=== PATIENT | female | born 1980 | race Caucasian/White ===

== ENCOUNTER 2018-02-21 15:39 | Emergency (ER) | payer MEDICAID ==
[2018-02-21 17:15] LABS: ABS Basophils 0 10^3/ul (0-0.2); ABS Eosinophils 0.2 10^3/ul (0-0.6); ABS Lymphocytes 2.3 10^3/ul (1.0-4.8); ABS Monocytes 0.6 10^3/ul (0-0.8); ABS Neutrophils 6.2 10^3/ul (1.5-7.7); ABS Nucleated RBC 0 10^3/ul; Eosinophil % 1.9 % (0-6); Hematocrit 38 % (35-47); Hemoglobin 12.9 g/dl (12.0-16.0); Lymphocyte % 24.5 % (25-47); Mean Corpuscular HGB Conc 34 g/dl (31-36); Mean Corpuscular Hemoglobin 30 pg (27-31); Mean Corpuscular Volume 89 fL (80-97); Mean Platelet Volume 8.5 um3 (7.4-10.4); Nucleated Red Blood Cells % 0; Platelet Count 230 10^3/ul (150-450); Red Blood Count 4.31 10^6/ul (4.00-5.40); Red Cell Distribution Width 14 % (10.5-15); White Blood Count 9.3 10^3/ul (3.5-10.8)
--- NOTE | 2018-02-21 17:20 | ED ---
GI/ HPI - HPI Summary HPI Summary: This is scribe Carola Zheng documenting for attending Danielle Redman MD This patient is a 37 year old F presenting to [facility] accompanied by her boyfriend with a chief complaint of vaginal bleeding for the past month, worsening the past few days. States she spoke to her OB in [place] who told her to come here. She states she has been changing a tampon three times an hour. Blood has been red, but today has been pink. Patient reports headache, dizziness fatigue, weakness, midline suprapubic and epigstric pain, that began before the bleeding. Denies CP, SOB, and odorous discharge. Patient has been receiving Depo-Provera shots; however, she ceased receiving them and her last shot was in October of 2017. A1. Pt states she lives in [place], but is visiting family in [place]. I, Dr. Redman ,personally performed the services described in this documentation as scribed in my presence and it is both accurate and complete - History of Current Complaint Chief Complaint: EDVaginalBleeding Time Seen by Provider: 02/21/18 16:56 Stated Complaint: ABNORMAL BLEEDING Hx Obtained From: Patient Onset/Duration: Started Weeks Ago, Worse Since - past few days Timing: Constant Severity: Moderate Current Severity: Severe Vaginal Bleeding Description: Bright Red Number of Pads per Hour: 3 - tampons Pain Intensity: 2 Location of Pain: Epigastric, Suprapubic Pain Characteristics: Dull Associated Signs and Symptoms: Positive: Dizziness, Weakness, Lightheadedness, Other: - headache Additional Signs & Symptoms: Positive: Vaginal Bleeding, - 3, Para - 2, First Day of Last Menstral Period - 01/21/18, Menses Irregular Aggravating Factor(s): Nothing Alleviating Factor(s): Nothing - Allergy/Home Medications Allergies/Adverse Reactions: Allergies Allergy/AdvReac Type Severity Reaction Status Date / Time aspirin Allergy Shortness Verified 02/21/18 15:52 of Breath [place] And Derivatives Allergy Nausea And Verified 02/21/18 15:52 Vomiting PMH/Surg Hx/FS Hx/Imm Hx Endocrine/Hematology History: Denies: Hx Anticoagulant Therapy Cardiovascular History: Reports: Hx Hypotension, Hx Myocardial Infarction - Surgical History Surgery Procedure, Year, and Place: x2. D&C, [place] Infectious Disease History: No Infectious Disease History: Denies: Traveled Outside the [place] in Last 30 Days - Family History Known Family History: Positive: Cardiac Disease, Diabetes - Social History Lives: Alone Alcohol Use: Rare Hx Substance Use: No Smoking Status (MU): Heavy Every Day Tobacco Smoker Review of Systems Positive: Fatigue, Other Cardiovascular: Negative Respiratory: Negative Positive: Abdominal Pain Positive: other - vaginal bleeding Skin: Negative Neurological: Other - dizziness Positive: Headache, Weakness Psychological: Normal All Other Systems Reviewed And Are Negative: Yes Physical Exam - Summary Physical Exam Summary: Appearance: Well-appearing, moderate pain distress, obese Skin: Warm, color reflects adequate perfusion, dry Head: Normal Head/Face inspection, atraumatic Eyes: Conjunctiva clear ENT: Normal inspection Neck: Supple, no nodes, no JVD Respiratory: Lungs clear, normal breath sounds, no respiratory distress Cardio: RRR, No murmur, pulses normal, brisk capillary refill Abdomen: Soft, nontender Bowel sounds: Present Pelvic Exam: Cervix long and closed, minimal amount of menstrual type blood in the vagina, adnexae are nontender, no masses, Exam is limited by obesity Musculoskeletal: Strength Intact/ROM intact, no calf tenderness, no edema. Psychological: Normal Neuro: Alert, muscle tone normal, no focal deficit BOSSMAN Hughes, was outpatient program coordinator for Pelvic Exam. Triage Information Reviewed: Yes Vital Signs On Initial Exam: Initial Vitals Temp Pulse Resp BP Pulse Ox 98.9 F 98 16 112/42 97 02/21/18 15:51 02/21/18 15:51 02/21/18 15:51 02/21/18 15:51 02/21/18 15:51 Vital Signs Reviewed: Yes Diagnostics - Vital Signs Vital Signs Temp Pulse Resp BP Pulse Ox 02/21/18 15:51 98.9 F 98 16 112/42 97 - Laboratory Result Diagrams: 02/21/18 17:09 02/21/18 17:09 Lab Statement: Any lab studies that have been ordered have been reviewed, and results considered in the medical decision making process. Re-Evaluation - Re-Evaluation First Re-Evaluation Time: 17:44 Change: Unchanged - Fully answered all of patient's questions. Pelvic cultures were taken. Pt requesting pain medication and US that was ordered. Advised that Dr. Lucas will assume care at 1900 GIGU Course/Dx - Course Course Of Treatment: 37 year old F with vaginal bleeding for the past month, worsening the past few days. She states she has been changing a tampon three times an hour. Patient reports headache, dizziness fatigue, weakness, midline suprapubic and epigstric pain, that began before the bleeding. Denies CP, SOB, and odorous discharge. Patient has been receiving Depo-Provera shots; however, she ceased receiving them and her last shot was in October of 2017. A1. Patient is given IV Fluids, Zofran, and Morphine. Bloodwork is unremarkable. ( Note B HCG is 0.93 and by lab definition less than 5 is not ). A Pelvic US is ordered. Patient will be signed out to Dr. Lucas, pending US. - Diagnoses Differential Diagnoses - Female: Appendicitis, Ovarian Cyst, Ovarian Torsion, , Urinary Tract Infection, Vaginitis, Other - dysfunctional uterine bleeding Provider Diagnoses: Vaginal bleeding, Abdominal pain Discharge - Sign-Out/Discharge Documenting (check all that apply): Sign-Out Patient Signing out patient TO: David Lucas - Pelvic US, 02/21/18 1900 - Discharge Plan Referrals: No Primary Care Phys,NOPCP [Primary Care Provider] -
[2018-02-21 17:24] LABS: INR 0.99 (0.77-1.02)
[2018-02-21 17:39] LABS: EGFR Non-African American 78.7 (>60)
[2018-02-21] MEDS ORDERED: Morphine VIAL* 10 MG/ML 1 ML VIAL IV ONE (18:11)
[2018-02-21] MEDS ORDERED: Ondansetron INJ* 2 MG/ML VIAL IV ONE (18:11)
[2018-02-21] MEDS: NS 0.9% 1000 ML* 2,000 ML IV ONE (19:23)
--- NOTE | 2018-02-21 21:24 | ED ---
Progress - Progress Note Progress Note: Patient is signed out from Dr. Redman awaiting Transvaginal US results. - Results/Orders Results/Orders: A Transvaginal US reveals, as per radiologist: Sonographically normal uterus and ovaries. Re-Evaluation - Re-Evaluation First Re-Evaluation Time: 17:44 Change: Unchanged - Fully answered all of patient's questions. Pelvic cultures were taken. Pt requesting pain medication and US that was ordered. Advised that Dr. Lucas will assume care at 1900 - Re-Evaluation Time: 17:44 Course/Dx - Course Course Of Treatment: 37 year old F with vaginal bleeding for the past month, worsening the past few days. She states she has been changing a tampon three times an hour. Patient reports headache, dizziness fatigue, weakness, midline suprapubic and epigstric pain, that began before the bleeding. Denies CP, SOB, and odorous discharge. Patient has been receiving Depo-Provera shots; however, she ceased receiving them and her last shot was in October of 2017. A1. Patient is given IV Fluids, Zofran, and Morphine. Bloodwork is unremarkable. ( Note B HCG is 0.93 and by lab definition less than 5 is not ). A Pelvic US is ordered. Patient will be signed out to Dr. Lucas, pending US. A Transvaginal US reveals: Sonographically normal uterus and ovaries. Patient will be discharged. Patient is agreeable with this plan. - Diagnoses Provider Diagnoses: Pelvic pain, Dysfunctional uterine bleeding Discharge - Sign-Out/Discharge Documenting (check all that apply): Patient Departure - discharge - Discharge Plan Condition: Stable Disposition: HOME Patient Education Materials: Dysfunctional Uterine Bleeding (ED), Pelvic Pain in Women (ED) Referrals: [facility] [Outside] - 1 Day Additional Instructions: Have definite follow up with your CHAIR CANER doctor in [place]. RETURN TO THE EMERGENCY DEPARTMENT FOR CHANGING OR WORSENING SYMPTOMS. FOLLOW UP WITH PCP IN 1-2 DAYS.
[2018-02-21] MEDS ORDERED: Ketorolac INJ* 30 MG/ML 1 ML VIAL IV PUSH ONE (21:35)
[2018-02-21 22:11] VITALS: BP 112/72
--- NOTE | 2018-02-22 07:17 | RAD ---
INDICATION: Vaginal bleeding, suprapubic pain. COMPARISON: There are no prior studies available for comparison. TECHNIQUE: Multiple real-time transabdominal and transvaginal images of the pelvis were obtained. FINDINGS: The uterus is upper limits of normal in size and normal in shape. The uterus measured 10.6 x 4.9 x 4.9 cm. The endometrial echo measured 1.2 cm in thickness. The right ovary measured 1.8 x 1.6 x 3.1 cm. The left ovary measured 2.0 x 2.5 x 2.0 cm. There are several bilateral subcentimeter follicular cysts present. No free intraperitoneal fluid is seen. IMPRESSION: NEGATIVE EXAM.
--- NOTE | 2018-02-24 17:00 | PN ---
Progress Note - Progress Note Date of Service: 02/21/18 Note: Pt. seen in ER 02/21 for abd. pain. Pelvic exam and cultures obtained at that time. Culture positive for gardnerella. Attempted to call pt. today and phone number is not available. Will send letter to return call.
== END 2018-02-21 22:11 | disposition home or self-care (01) ==
LOC: ED 15:39
DX: N93.8 Other specified abnormal uterine and vaginal bleeding (principal); R10.2 Pelvic and perineal pain; F17.200 Nicotine dependence, unspecified, uncomplicated; Z88.6 Allergy status to analgesic agent
CPT/HCPCS: 36415; 76830; 76856; 80053; 84702; 85025; 85610; 85730; 86592; 86850; 86900; 86901; 87480; 87491; 87510; 87591; 87661; 96361; 96374; 96375; 99283; J1885; J2270; J2405

== ENCOUNTER 2018-02-28 08:49 | Emergency (ER) | payer MEDICAID ==
[2018-02-28] MEDS ORDERED: Ondansetron INJ* 2 MG/ML VIAL IV ONE (09:10)
[2018-02-28] MEDS ORDERED: Morphine INJ* 2 MG/ML 1 ML SYRINGE (TWO MG - NEW SYRINGE VERSION) IV ONE (09:17)
--- NOTE | 2018-02-28 09:19 | ED ---
Abdominal Pain/Female - HPI Summary HPI Summary: Patient is a 37-year-old female who presents emergency department for ongoing diffuse abdominal pain. Patient was seen in the ER 02/21/18 for pelvic pain and vaginal bleeding. blood work and ultrasound done at that time. She also had a pelvic exam with cultures. Vaginal culture came back positive for Gardnerella. 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 She describes localizes pain to epigastric region and lower abd. She does not hx of acid reflux. History is limited by patient due to lack of cooperation. Questions are answered with the help of patient's significant other who is present. Suspect symptoms of nausea and vomiting. She is no other significant past medical history. Patient states she has been having irregular vaginal bleeding for years. Patient states she is currently visiting the area for the summer and resides in [place]. Symptoms are moderate in severity. No current modifying factors. - History of Current Complaint Chief Complaint: EDNauseaVomitDiarrh Stated Complaint: ABD PAIN Time Seen by Provider: 02/28/18 09:05 Hx Obtained From: Patient, Family/Spinner Frame Pain Intensity: 11 Allergies/Adverse Reactions: Allergies Allergy/AdvReac Type Severity Reaction Status Date / Time aspirin Allergy Shortness Verified 02/21/18 15:52 of Breath [place] And Derivatives Allergy Nausea And Verified 02/21/18 15:52 Vomiting PMH/Surg Hx/FS Hx/Imm Hx Previously Healthy: Yes Endocrine/Hematology History: Denies: Hx Anticoagulant Therapy Cardiovascular History: Reports: Hx Hypotension, Hx Myocardial Infarction - Surgical History Surgery Procedure, Year, and Place: x2. D&C, [place] Infectious Disease History: No Infectious Disease History: Denies: Traveled Outside the US in Last 30 Days - Family History Known Family History: Positive: Cardiac Disease, Diabetes - Social History Occupation: Unemployed Lives: With Family Alcohol Use: Rare Hx Substance Use: No Substance Use Type: Reports: None Smoking Status (MU): Heavy Every Day Tobacco Smoker Review of Systems Constitutional: Negative Eyes: Negative ENT: Negative Cardiovascular: Negative Respiratory: Negative Positive: Abdominal Pain, Vomiting, Nausea Genitourinary: Negative Musculoskeletal: Negative Neurological: Negative All Other Systems Reviewed And Are Negative: Yes Physical Exam Triage Information Reviewed: Yes Vital Signs On Initial Exam: Initial Vitals Temp Pulse Resp BP Pulse Ox 98.2 F 77 12 106/63 99 02/28/18 09:02 02/28/18 09:02 02/28/18 09:02 02/28/18 09:02 02/28/18 09:02 Vital Signs Reviewed: Yes Appearance: Positive: Pain Distress - Pt. lying on bed with legs pulled up. Appears uncomfortable but nontoxic. S.O. present. Skin: Positive: Warm, Dry Head/Face: Positive: Normal Head/Face Inspection Eyes: Positive: Normal Neck: Positive: Supple Respiratory/Lung Sounds: Positive: Clear to Auscultation, Breath Sounds Present Cardiovascular: Positive: Normal, RRR Abdomen Description: Positive: Other: - Morbidly obese. Abd. is soft with diffuse tenderness on palpation. No rebound tenderness or guarding. No rigidity. Neurological: Positive: Normal, CN Intact II-III Psychiatric: Positive: Affect/Mood Appropriate Diagnostics - Vital Signs Vital Signs Temp Pulse Resp BP Pulse Ox 02/28/18 09:02 98.2 F 77 12 106/63 99 - Laboratory Result Diagrams: 02/28/18 09:36 02/28/18 09:36 Lab Statement: Any lab studies that have been ordered have been reviewed, and results considered in the medical decision making process. Abdominal Pain Fem Course/Dx - Course Course Of Treatment: Pt. presenting for diffuse abd. pain. She is afebrile with stable VS. Pt. has pain to epigastric and lower abd. Will recheck labs and obtain CT scan for further evaluation of worsening abd. pain. Labs are unremarkable. CT scan shows left ovarian cyst but is otherwise unremarkable, reading per radiology. U/A shows RBC but negative for infection. On re-exam pt. is resting comfortably. Results were discussed. Advised to call her EDUCATIONAL DIRECTOR tomorrow for a close f.u apt. Advised to start clindamycin topical that was rx the other day for her BV. Will also start on pepcid for suspected gerd. Can take tylenol or motrin for pain as directed. To return to ER if sxs change or worsen. Pt. understands and agrees with plan. - Diagnoses Differential Diagnosis: Positive: Appendicitis, Constipation, Ectopic , Ovarian Cyst, Pelvic Inflammatory Disease, , Renal Colic, Urinary Tract Infection Provider Diagnoses: Bacterial vaginal infection, GERD (gastroesophageal reflux disease) Discharge - Sign-Out/Discharge Documenting (check all that apply): Patient Departure - Discharge Plan Condition: Good Disposition: HOME Prescriptions: Famotidine [Pepcid] 20 mg PO DAILY #14 tablet Patient Education Materials: Bacterial Vaginosis (ED), Gastritis (ED) Referrals: [facility] [Outside] No Primary Care Phys,NOPCP [Primary Care Provider] - Additional Instructions: Call the [facility] tomorrow to schedule an appointment cardiopulmonary supervisor prescriptions from your pharmacy after discharged and start taking them today as directed Call your EDUCATIONAL DIRECTOR tomorrow to schedule a close follow up appointment Tylenol for pain as directed Return to ER if symptoms change or worsen - Billing Disposition and Condition Condition: GOOD Disposition: Home
[2018-02-28] MEDS ORDERED: NS 0.9% 1000 ML* 1,000 ML IV ONE (09:38)
[2018-02-28 09:46] LABS: ABS Basophils 0 10^3/ul (0-0.2); ABS Eosinophils 0.1 10^3/ul (0-0.6); ABS Lymphocytes 1.8 10^3/ul (1.0-4.8); ABS Monocytes 0.7 10^3/ul (0-0.8); ABS Neutrophils 6.9 10^3/ul (1.5-7.7); ABS Nucleated RBC 0 10^3/ul; Eosinophil % 1.2 % (0-6); Hematocrit 37 % (35-47); Hemoglobin 12.7 g/dl (12.0-16.0); Lymphocyte % 19.1 % (25-47); Mean Corpuscular HGB Conc 34 g/dl (31-36); Mean Corpuscular Hemoglobin 30 pg (27-31); Mean Corpuscular Volume 88 fL (80-97); Mean Platelet Volume 8.7 um3 (7.4-10.4); Nucleated Red Blood Cells % 0; Platelet Count 235 10^3/ul (150-450); Red Blood Count 4.21 10^6/ul (4.00-5.40); Red Cell Distribution Width 14 % (10.5-15); White Blood Count 9.5 10^3/ul (3.5-10.8)
[2018-02-28 10:04] LABS: EGFR Non-African American 83.5 (>60)
[2018-02-28] MEDS ORDERED: Ketorolac INJ* 30 MG/ML 1 ML VIAL IV PUSH ONE (10:33)
[2018-02-28] MEDS ORDERED: Iohexol 300* (CONTRAST) 10 ML SDV IV ONE (12:34)
[2018-02-28 13:05] LABS: Urine Appearance Cloudy; Urine Blood 2+ (Negative); Urine Color Yellow; Urine Ketones Negative (Negative); Urine Protein Negative (Negative); Urine Red Blood Cell 3+(>10/hpf) (Absent); Urine Urobilinogen Negative (Negative); Urine White Blood Cell Trace(0-5/hpf) (Absent)
--- NOTE | 2018-02-28 13:12 | RAD ---
CLINICAL HISTORY: diffuse abd. pain COMPARISON: None TECHNIQUE: Multiple contiguous axial CT scans were obtained of the abdomen and pelvis after the administration of intravenous contrast. Coronal and sagittal multiplanar reformations are submitted for review. Oral contrast was administered. Delayed images were obtained through the abdomen. FINDINGS: LUNG BASES: The lung bases are clear. LIVER: The liver is normal in shape, size, contour, and attenuation. BILE DUCTS: There is no intrahepatic or extrahepatic biliary dilatation. GALLBLADDER: The gallbladder is normal, without pericholecystic inflammatory change. PANCREAS: The pancreas is normal, without mass or ductal dilatation. SPLEEN: Normal in size and appearance. UPPER GI TRACT: Evaluation of the gastrointestinal tract is limited by incomplete gastric distention. The upper GI tract is unremarkable. SMALL BOWEL AND MESENTERY: The small bowel is normal in contour, course, and caliber. There is no obstruction or dilatation. COLON: The colon is normal in contour, course, caliber. There is no pericolonic inflammatory change. There is a tubular, vermiform, hollow viscus that is blind ending, and originates from the cecum, consistent with a normal appendix. There is no periappendiceal inflammatory change. This is best seen on axial images 63 and 64. ADRENALS: Normal bilaterally. KIDNEYS: The kidneys are normal in shape, size, contour, and axis. There is no hydronephrosis or nephrolithiasis. BLADDER: The bladder is incompletely distended but is grossly normal. PELVIC ORGANS: There is a fat-containing lesion of left ovary consistent with a dermoid cyst. The uterus and adnexa are otherwise grossly normal for technique. AORTA: The aorta is normal. IVC: Unremarkable LYMPH NODES: There is no lymphadenopathy by size criteria. ABDOMINAL WALL: There is no evidence for abdominal wall hernia. BONES AND SOFT TISSUES: Unremarkable OTHER: None IMPRESSION: NO ACUTE CT PATHOLOGY OF THE VISUALIZED ABDOMEN OR PELVIS.
[2018-02-28] MEDS ORDERED: Famotidine TAB* 20 MG PO ONE (13:19)
[2018-02-28] MEDS ORDERED: metroNIDAZOLE TAB* 250 MG PO ONE (13:19)
[2018-02-28 13:42] VITALS: BP 119/76
== END 2018-02-28 13:43 | disposition home or self-care (01) ==
LOC: ED 08:49
DX: N76.0 Acute vaginitis (principal); K21.9 Gastro-esophageal reflux disease without esophagitis; Z88.6 Allergy status to analgesic agent; F17.200 Nicotine dependence, unspecified, uncomplicated
CPT/HCPCS: 36415; 74177; 80053; 81003; 81015; 83605; 83690; 84702; 85025; 86140; 87086; 93005; 96361; 96374; 96375; 99282; A9270-GY; J1885; J2270; J2405; Q9967

== ENCOUNTER 2019-06-10 02:17 | Emergency (ER) | payer MEDICAID ==
[2019-06-10] MEDS ORDERED: Ondansetron INJ* 2 MG/ML VIAL IV ONE (02:46)
[2019-06-10] MEDS ORDERED: Pantoprazole IV* 40 MG IV ONE (02:46)
[2019-06-10] MEDS ORDERED: Ketorolac INJ* 30 MG/ML 1 ML VIAL IV PUSH ONE (02:46)
[2019-06-10] MEDS ORDERED: NS 0.9% 1000 ML** 1,000 ML IV ONE (02:46)
--- NOTE | 2019-06-10 02:56 | ED ---
Abdominal Pain/Female - HPI Summary HPI Summary: Patient is a 38 y/o F w/ Hx of hemorrhoids who presents to [facility] with complaints of abdominal pain, diarrhea, and rectal bleeding. Sx have been present for the past few days. She states that she has had diarrhea intermittently and reports bright red blood in her stool. She states that she had an episode of emesis one day ago. Dysuria and fever are denied. Patient has been able to eat food. 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 No other PMHx, no daily medications noted. Allergy to ASA is noted, patient claims that her throat swells with this medication. She endorses tobacco usage and rare alcohol usage but denies substance usage. PSHx of D and C and section are noted. Patient states that she missed her most recent period due to stress, patient had menstrual cycle in April. On triage, pain is rated 10/10, nothing is noted to aggravate/alleviate Sx. Home medications and allergies are reviewed. - History of Current Complaint Chief Complaint: EDAbdPain Stated Complaint: RECTAL BLEEDING PER PT Time Seen by Provider: 06/10/19 02:45 Hx Obtained From: Patient Onset/Duration: Lasting Days, Still Present Timing: Days Severity Currently: Severe Pain Intensity: 10 Pain Scale Used: 0-10 Numeric Aggravating Factor(s): Nothing Alleviating Factor(s): Nothing Associated Signs and Symptoms: Positive: Blood in Stool, Vomiting, Diarrhea. Negative: Fever, Urinary Symptoms Allergies/Adverse Reactions: Allergies Allergy/AdvReac Type Severity Reaction Status Date / Time aspirin Allergy Shortness Verified 06/10/19 02:28 of Breath [place] And Derivatives Allergy Nausea And Verified 06/10/19 02:28 Vomiting Home Medications: Home Medications NK [No Home Medications Reported] 06/10/19 [History Confirmed 06/10/19] PMH/Surg Hx/FS Hx/Imm Hx Endocrine/Hematology History: Denies: Hx Anticoagulant Therapy, Hx Diabetes Cardiovascular History: Reports: Hx Hypotension, Hx Myocardial Infarction Denies: Hx Hypertension Sensory History: Denies: Hx Legally Blind, Hx Deafness Opthamlomology History: Denies: Hx Legally Blind EENT History: Denies: Hx Deafness - Surgical History Surgery Procedure, Year, and Place: x2. D&C, [place] Infectious Disease History: No Infectious Disease History: Denies: Traveled Outside the US in Last 30 Days - Family History Known Family History: Positive: Cardiac Disease, Diabetes - Social History Alcohol Use: Rare Hx Substance Use: No Substance Use Type: Reports: None Smoking Status (MU): Heavy Every Day Tobacco Smoker Review of Systems Negative: Fever Gastrointestinal: Other - positive - rectal bleeding Positive: Abdominal Pain, Vomiting, Diarrhea Negative: dysuria All Other Systems Reviewed And Are Negative: Yes Physical Exam - Summary Physical Exam Summary: General: Well-developed, Obese female. Appears in moderate discomfort HEENT: Normocephalic, Atraumatic. Eyes: Conjuctiva normal, PERRL. Ears: TMs within normal limits. Nares: (-) discharge, (-) erythema. Oropharynx: Clear, mucous membranes moist, (-) exudates. Neck: Soft, FROM, (-) lymphadenopathy, (-) thyromegaly, (-) JVD. Cardiovascular: Normal sinus rhythm, (-) murmur. Lungs: Clear to auscultation bilaterally (-) wheezes, (-) rales, (-) rhonchi. Abdomen: Soft, diffuse lower abdominal pain, non-distended, (-) organomegaly, normal bowel sounds. Rectal: Patient has large hemorrhoids that are up to 3 cm. They are pink and mildly tender with no evidence of thrombosis. Back: (-) CVA tenderness Extremities: No edema. Skin: Warm, dry, (-) rash. Neuro: Alert and oriented x3, no focal deficits. Psychiatric: Mood normal, affect normal. Triage Information Reviewed: Yes Vital Signs On Initial Exam: Initial Vitals Temp Pulse Resp BP Pulse Ox 97.8 F 88 18 134/100 98 06/10/19 02:28 06/10/19 02:28 06/10/19 02:28 06/10/19 02:28 06/10/19 02:28 Vital Signs Reviewed: Yes Procedures - Sedation Patient Received Moderate/Deep Sedation with Procedure: No Diagnostics - Vital Signs Vital Signs Temp Pulse Resp BP Pulse Ox 06/10/19 02:28 97.8 F 88 18 134/100 98 - Laboratory Result Diagrams: 06/10/19 03:04 06/10/19 03:04 Lab Statement: Any lab studies that have been ordered have been reviewed, and results considered in the medical decision making process. Abdominal Pain Fem Course/Dx - Course Course Of Treatment: During ED course, patient received fluids, protonix 40 mg IV, Zofran 4 mg IV, and toradol 15 mg IV. - Diagnoses Provider Diagnoses: Hemorrhoids, Abdominal pain, Diarrhea Discharge ED - Sign-Out/Discharge Documenting (check all that apply): Patient Departure - discharge - Discharge Plan Condition: Stable Disposition: HOME Patient Education Materials: Hemorrhoids (ED), Acute Diarrhea (ED), Abdominal Pain (ED) Referrals: [facility] [Outside] - 3 Days Shahid Madsen MD [Medical Doctor] - 3 Days Additional Instructions: DRINK CLEAR FLUIDS AND USE PREPARATION H, ANUSOLE HC, SITZ BATHS. PLEASE RETURN TO ED FOR ANY NEW OR WORSENING SYMPTOMS. PLEASE FOLLOW UP WITH YOUR PRIMARY CARE PHYSICIAN AND DR. MADSEN WITHIN THREE DAYS. - Billing Disposition and Condition Condition: STABLE Disposition: Home - Attestation Statements Document Initiated by Scribe: Yes Documenting Scribe: LANE GALAVIZ Provider For Whom Scribe is Documenting (Include Credential): MAKEDA HIDALGO MD Scribe Attestation: LANE Levine, scribed for MAKEDA HIDALGO MD on 06/13/19 at 0249. Scribe Documentation Reviewed: Yes Provider Attestation: The documentation as recorded by the LANE palmer accurately reflects the service I personally performed and the decisions made by , MAKEDA HIDALGO MD Status of Scribe Document: Viewed
[2019-06-10 03:13] LABS: ABS Eosinophils 0.1 10^3/ul (0-0.6); ABS Lymphocytes 2.5 10^3/ul (1.0-4.8); ABS Monocytes 0.8 10^3/ul (0-0.8); ABS Neutrophils 6.7 10^3/ul (1.5-7.7); Eosinophil % 1.3 %; Hematocrit 39 % (35-47); Hemoglobin 13.2 g/dL (12.0-16.0); Lymphocyte % 24.3 %; Mean Corpuscular HGB Conc 34 g/dL (31-36); Mean Corpuscular Hemoglobin 31 pg (27-31); Mean Corpuscular Volume 89 fL (80-97); Mean Platelet Volume 8.7 fL (7.4-10.4); Platelet Count 230 10^3/uL (150-450); Red Blood Count 4.32 10^6 /uL (3.70-4.87); Red Cell Distribution Width 14 % (10-15); White Blood Count 10.2 10^3/uL (3.5-10.8)
[2019-06-10 03:19] LABS: INR 1.06 (0.82-1.09)
[2019-06-10 03:31] LABS: Albumin 4.1 g/dL (3.2-5.2); Albumin/Globulin Ratio 1.3 (1-3); C Reactive Protein 14.15 mg/L (<8.01); Calcium 9.4 mg/dL (8.6-10.3); EGFR Non-African American 84.3 (>60); Globulin 3.1 g/dL (2-4); Potassium 3.8 mmol/L (3.5-5.0); Total Bilirubin 0.2 mg/dL (0.2-1.0); Total Protein 7.2 g/dL (6.4-8.9)
[2019-06-10 04:14] LABS: Urine Appearance Cloudy; Urine Bilirubin Negative (Negative); Urine Blood 1+ (Negative); Urine Color Yellow; Urine Glucose Negative (Negative); Urine Ketones Negative (Negative); Urine Nitrite Negative (Negative); Urine Protein Negative (Negative); Urine Urobilinogen Negative (Negative)
[2019-06-10 04:18] LABS: Urine Bacteria Absent (Absent); Urine Red Blood Cell 1+(3-5/hpf) (Absent); Urine Squamous Epithelial Cell Present (Absent); Urine White Blood Cell Absent (Absent)
[2019-06-10 05:59] VITALS: BP 135/82
== END 2019-06-10 05:45 | disposition home or self-care (01) ==
LOC: ED 02:17
DX: K64.9 Unspecified hemorrhoids (principal); R10.9 Unspecified abdominal pain; R19.7 Diarrhea, unspecified; I25.2 Old myocardial infarction; F17.200 Nicotine dependence, unspecified, uncomplicated; Z88.8 Allergy status to other drugs, medicaments and biological substances
CPT/HCPCS: 36415; 80053; 81003; 81015; 83605; 83690; 85025; 85610; 86140; 96361; 96374; 96375; 99284; J1885; J2405

== ENCOUNTER 2019-09-27 05:09 | Emergency (ER) | payer MEDICAID ==
[2019-09-27 05:14] VITALS: BP 125/75
[2019-09-27] MEDS ORDERED: Amoxicillin PO (*) 875 MG TAB PO ONE (05:47)
[2019-09-27] MEDS ORDERED: Ketorolac INJ* 30 MG/ML 1 ML VIAL IM ONE (05:47)
--- NOTE | 2019-09-27 05:47 | ED ---
Throat Pain/Nasal Congestion - HPI Summary HPI Summary: 39 year old female presents with sore throat and ear ache for the past couple days. She admits to some nausea vomiting. she is not currently nauseous. Has had an ear ache since yesterday. It is very severe and in her right ear. She does have a history of ear infections. No history of strep. She states that her daughter was sick with a viral illness. No medical conditions. she denies any chest pain or SOB. Denies any sinus congestion. No postnasal drip. No chest pain shortness breath. Admits to occasional cough. No vomiting. - History of Current Complaint Chief Complaint: EDThroatPain Time Seen by Provider: 09/27/19 05:34 - Allergies/Home Medications Allergies/Adverse Reactions: Allergies Allergy/AdvReac Type Severity Reaction Status Date / Time Nathalie And Derivatives Allergy Hives/Diff. Verified 09/27/19 05:13 Breathing/I tching Home Medications: Home Medications Amoxicillin PO (*) [Amoxicillin 875 MG (*)] 875 mg PO BID #13 tab 09/27/19 [Rx] Aspirin/Acetaminophen/Caffeine [Excedrin Extra Strength Caplet] 1 each PO Q6H PRN 09/27/19 [History Confirmed 09/27/19] PMH/Surg Hx/FS Hx/Imm Hx Endocrine/Hematology History: Denies: Hx Anticoagulant Therapy Respiratory History: Denies: Hx Asthma Infectious Disease History: No Infectious Disease History: Denies: Traveled Outside the [place] in Last 30 Days - Family History Known Family History: Positive: Non-Contributory - Social History Alcohol Use: Rare Substance Use Type: Reports: None Smoking Status (MU): Light Every Day Tobacco Smoker Review of Systems Negative: Fever Positive: Sore Throat, Ear Ache. Negative: Nasal Discharge Negative: Chest Pain Negative: Shortness Of Breath All Other Systems Reviewed And Are Negative: Yes Physical Exam Triage Information Reviewed: Yes Vital Signs On Initial Exam: Initial Vitals Temp Pulse Resp BP Pulse Ox 97.6 F 75 16 125/75 97 09/27/19 05:10 09/27/19 05:10 09/27/19 05:10 09/27/19 05:10 09/27/19 05:10 Vital Signs Reviewed: Yes Appearance: Positive: Well-Appearing Skin: Positive: Warm, Dry Head/Face: Positive: Normal Head/Face Inspection Eyes: Positive: EOMI, ADRIANNA, Conjunctiva Clear ENT: Positive: Pharyngeal erythema, TM red - mild right ear, Uvula midline, Other - soft palate symmetric. Negative: Tonsillar swelling, Tonsillar exudate , Trismus, Muffled voice Respiratory/Lung Sounds: Positive: Clear to Auscultation, Breath Sounds Present Cardiovascular: Positive: Normal, RRR Abdomen Description: Positive: Nontender, Soft Bowel Sounds: Positive: Present Musculoskeletal: Positive: Normal Neurological: Positive: Normal Psychiatric: Positive: Normal Procedures - Sedation Patient Received Moderate/Deep Sedation with Procedure: No Diagnostics - Vital Signs Vital Signs Temp Pulse Resp BP Pulse Ox 09/27/19 05:10 97.6 F 75 16 125/75 97 - Laboratory Lab Statement: Any lab studies that have been ordered have been reviewed, and results considered in the medical decision making process. EENT Course/Dx - Course Course Of Treatment: 39 year old female presents with Sore throat and ear ache for the past couple days. She admits to some nausea vomiting. she is not currently nauseous. Has had an ear ache since yesterday. It is very severe and in her right ear. She does have a history of ear infections. No history of strep. She states that her daughter was sick with a viral illness. No medical conditions. she denies any chest pain or SOB. Denies any sinus congestion. No postnasal drip. No chest pain shortness breath. Admits to occasional cough. No vomiting. On exam pharynx erythematous. Uvula midline. Soft palate symmetric. right ear mildly erythematous. We'll treat with ear infection with amoxicillin. Told follow up with primary. Patient understands agrees with plan. - Differential Diagnoses Differential Diagnoses: Otitis Externa, Otitis Media, Tonsilitis, URI/Bronchitis - Diagnoses Provider Diagnoses: Ear infection Discharge ED - Sign-Out/Discharge Documenting (check all that apply): Patient Departure - Discharge Plan Condition: Good Disposition: HOME Prescriptions: Amoxicillin PO (*) [Amoxicillin 875 MG (*)] 875 mg PO BID #13 tab Patient Education Materials: Ear Infection (ED) Referrals: No Primary Care Phys,NOPCP [Primary Care Provider] - Additional Instructions: Take antibiotic twice a day for 7 days Take Tylenol or ibuprofen for pain every 6 hours Follow up with primary within 5 days Return to ED if develop any new or worsening symptoms - Billing Disposition and Condition Condition: GOOD Disposition: Home
== END 2019-09-27 06:07 | disposition home or self-care (01) ==
LOC: MERGE 05:09 → ED 05:09
DX: H66.90 Otitis media, unspecified, unspecified ear (principal); J02.9 Acute pharyngitis, unspecified; F17.210 Nicotine dependence, cigarettes, uncomplicated; H92.09 Otalgia, unspecified ear
CPT/HCPCS: 96372; 99282; J1885

== ENCOUNTER 2019-10-08 17:03 | Emergency (ER) | payer MEDICAID ==
--- NOTE | 2019-10-08 17:09 | UC ---
Throat Pain/Nasal Pillo HPI - HPI Summary HPI Summary: 39-year-old female presenting with sore throat and "swollen tonsils" 2-3 days. Patient states feels like her "throat is closing." Patient states that this feeling has been going on for over a year now. States she has difficulty swallowing because it hurts so badly. Denies being unable to swallow food or drink, just states that it is very painful. Denies difficulty breathing. Swallowing her secretions without issue. Denies nasal congestion. Denies cough. Patient states the pain from her throat is radiating into her ears bilaterally. Denies fever and chills. Does note that she went to the ER 1 week ago and was given a 1 week course of amoxicillin for left otitis media. Patient states her last dose of amoxicillin will be tonight. States throat sprays are not alleviating pain. - History of Current Complaint Stated Complaint: SORE THROAT Hx Obtained From: Patient - Allergies/Home Medications Allergies/Adverse Reactions: Allergies Allergy/AdvReac Type Severity Reaction Status Date / Time aspirin Allergy Shortness Verified 10/08/19 17:14 of Breath Hana And Derivatives Allergy Nausea And Verified 10/08/19 17:14 Vomiting Home Medications: Home Medications Aspirin/Acetaminophen/Caffeine [Excedrin Extra Strength Caplet] 1 each PO Q6H PRN 09/27/19 [History Confirmed 10/08/19] Phenylephrine/Dm/Acetaminop/GG [Vicks Dayquil Severe Cold-Flu] 1 each PO Q6H [History Confirmed 10/08/19] PMH/Surg Hx/FS Hx/Imm Hx Other History Of: Negative For: Anticoagulant Therapy - Surgical History Surgical History: Yes Surgery Procedure, Year, and Place: x2. D&C, [place] - Family History Known Family History: Positive: Cardiac Disease, Diabetes, Non-Contributory - Social History Alcohol Use: Rare Substance Use Type: None Smoking Status (MU): Light Every Day Tobacco Smoker Household Exposure Type: Cigarettes Review of Systems All Other Systems Reviewed And Are Negative: Yes Constitutional: Positive: Negative ENT: Positive: Sore Throat, Ear Ache - b/l. Negative: Sinus Congestion Respiratory: Positive: Negative Cardiovascular: Positive: Negative Gastrointestinal: Positive: Negative Musculoskeletal: Positive: Negative Neurological/Mental Status: Positive: Negative Physical Exam - Summary Physical Exam Summary: Vital Signs Reviewed: Yes A+Ox3, no distress, well-appearing Eyes: Conjunctiva Clear ENT: Hearing grossly normal, TM x 2 clear, moist, uvula midline, no exudate, + pharyngeal erythema, no tonsillar swelling or pharyngeal edema, no trismus, no drooling Neck: Positive: Supple, mildly tender, no LAD Respiratory: Positive: No respiratory distress, No accessory muscle use + CTA throughout no w/r, no stridor Cardiovascular: RRR nl s1, s2 no m/r Musculoskeletal Exam: ALLEN x 4 without difficulty Neurological: Positive: Alert Psychological: Positive: age appropriate behavior Skin: Positive: no rash, no ecchymosis Vital Signs: Vital Signs (72 hours) 10/08/19 17:21 Temperature 97.7 F Pulse Rate 65 Respiratory 16 Rate Blood Pressure 115/94 (mmHg) O2 Sat by Pulse 99 Oximetry Lab Results 10/08/19 Range/Units 17:34 Group A Strep Rapid Negative (Negative) Throat Pain/Nasal Course/Dx - Course Course Of Treatment: Negative rapid strep test. I discussed likely viral pharyngitis with patient, especially given that she has already been taking amoxicillin for the last week for OM which would likely have covered bacterial source of pharyngitis. No stridor, drooling, or difficulty breathing. No tonsillar or pharyngeal edema. I instructed to continue with symptomatic treatment. Educated on s/s of worsening illness and instructed to go to ED if any red flags occur. Patient voiced understanding and agreed with treatment plan. - Differential Dx/Diagnosis Differential Diagnosis/HQI/PQRI: Pharyngitis, Tonsillitis, URI Provider Diagnosis: Viral pharyngitis Discharge ED - Sign-Out/Discharge Documenting (check all that apply): Patient Departure All imaging exams completed and their final reports reviewed: No Studies - Discharge Plan Condition: Stable Disposition: HOME Patient Education Materials: Pharyngitis (ED) Referrals: [facility] [Outside] - If Needed Additional Instructions: As discussed, you tested negative for strep throat today. Your symptoms are likely caused by a virus and should resolve without treatment. You may take ibuprofen and/or tylenol as directed for pain relief. You may use over the counter throat sprays or lozenges for symptomatic relief. Get plenty of rest and fluids. Go to the emergency room if you experience new or worsening symptoms including difficulty breathing and fever higher than 102 that does not improve with medication. - Billing Disposition and Condition Condition: STABLE Disposition: Home
[2019-10-08 17:21] VITALS: BP 115/94
== END 2019-10-08 18:00 | disposition home or self-care (01) ==
LOC: UCEAST 17:03
DX: J02.8 Acute pharyngitis due to other specified organisms (principal); Z88.6 Allergy status to analgesic agent; Z91.018 Allergy to other foods; F17.210 Nicotine dependence, cigarettes, uncomplicated
CPT/HCPCS: 87651; 99211; G0463